=== PATIENT | female | born 1985 | race Caucasian/White ===

== ENCOUNTER → 2022-05-13 07:35 | Outpatient (CLI) | payer OTHER, SELFPAY ==
--- NOTE | ~2022-05-13 | MMUS_ITS ---
EXAMINATION: MM diagnostic carly BI w lashonda, US breast BI complete HISTORY: Palpable right breast lump TECHNIQUE: Additional 3-D tomosynthesis images of the breasts were performed and synthetic 2-D images were generated. CAD analysis was submitted and interpreted. High resolution bilateral complete breas t ultrasound was performed. COMPARISON: None BREAST PARENCHYMAL COMPOSITION: The breasts are heterogenously dense, which may obscure small masses FINDINGS: MAMMOGRAPHIC FINDINGS: There is a small mass in the lower outer quadrant of the right breast, middle third. There are cluste red benign-appearing calcifications in the upper outer and upper inner quadrants of the left breast. There are subtle masses in the lower outer quadrant of the left breast obscured by dense fibroglandul ar tissue. ULTRASOUND: Complete bilateral US of all 4 quadrants of the breasts and retroareolar region was reviewed. Right breast: At 4:00 near the areola there is an oval circumscribed hypoechoic mass with parallel or ientation, no significant posterior features measuring 9 x 6 x 10 mm. No internal vascularity. At 8:00, 4 cm from the nipple there is an oval hypoechoic mass measuring 7 x 3 x 5 mm parallel orient ation, no posterior features and no internal vascularity. At 9:00, 6 cm from the nipple there is an o boo hypoechoic mass measuring 5 x 3 x 7 mm with parallel orientation, subtle enhanced or transmission and no internal vascularity. At 10:00, 4 cm from the nipple there is an oval hypoechoic mass measuri ng 9 x 5 x 7 mm with parallel orientation, subtle enhanced or transmission and no internal vascularit y. At 10:00, 7 cm from the nipple there is an oval hypoechoic mass 8 x 5 x 6 mm with parallel orienta tion and sagittal enhanced or transmission. Left breast: At 2:00, 5 cm from the nipple there is an irregular hypoechoic mass with internal calcif ications corresponding to a cluster of calcifications seen on mammography. There is posterior shadowi ng secondary to the calcifications. This mass measures 8 x 4 x 10 mm with parallel orientation. At 3: 00, 6 cm from the nipple there is an oval circumscribed hypoechoic mass with parallel orientation, no significant posterior features or internal vascularity measuring 1 cm greatest dimension. At 4:00, 5 cm from the nipple there is oval circumscribed hypoechoic mass with parallel orientation measuring u p to 6 mm with no internal vascularity or posterior features. At 3-4:00 near the areola there is a 1. 2 cm cyst. There is an adjacent 5 mm cyst. At 10:00, 5 cm from the nipple there is some oval hypoecho ic mass measuring 4 mm without posterior features or internal vascularity. At 10:00, 6 cm from the ni pple there is an oval hypoechoic mass With internal calcifications measuring 1.3 cm, likely corresponding to the second cluster benign calc ifications seen on mammography. At 11:00, 4 cm from the nipple there is a 1 cm oval hypoechoic mass w ithout posterior features or internal vascularity. At 11:00, 4 cm from the nipple, there is an oval c ircumscribed hypoechoic mass measuring up to 5 mm, likely benign. IMPRESSION: 1. Multiple bilateral breast masses described above. Given the characteristics sonographically and th e multiplicity of masses bilaterally these are likely benign. 2. Recommend 6 month follow-up diagnostic bilateral mammogram and ultrasound recommended. BI-RADS category 3, probably benign findings. Reviewed, dictated and finalized at location A. IMPRESSION: 1. Multiple bilateral breast masses described above. Given the characteristics sonographically and the multiplicity of masses bilaterally these are likely moo ign. 2. Recommend 6 month follow-up diagnostic bilateral mammogram and ultrasound re commended. BI-RA
== END ==
PROVIDERS: Visit Provider Nurse Practitioner
DX: N63.10 Unspecified lump in the right breast, unspecified quadrant (principal); R92.8 Other abnormal and inconclusive findings on diagnostic imaging of breast
CPT/HCPCS: 76641; 77062; 77066; G0279